=== PATIENT | female | born 2000 | race Caucasian/White ===

== ENCOUNTER 2022-12-05 19:55 | Inpatient (IN) | payer BC ==
[~2022-12-05] VITALS: Ht 157.5 cm; Wt 57.4 kg
[2022-12-05] MEDS ORDERED: normal saline 1000ML IV soln IV ONE (23:25)
[2022-12-05] MEDS ORDERED: diazepam inj 5 MG/ML inj. IV ONE (23:25)
[2022-12-05 23:44] LABS: BASOPHILS # (AUTO) 0.1 X10'3 (0-0.2); BASOPHILS % (AUTO) 1.2 % (0-1); EOSINOPHILS # (AUTO) 0.1 X10'3 (0-0.9); EOSINOPHILS % (AUTO) 1.3 % (0-6); HEMATOCRIT 41.2 % (35.0-45.0); HEMOGLOBIN 14.1 g/dl (12.0-16.0); LYMPHOCYTES # (AUTO) 1.4 X10'3 (1.1-4.8); LYMPHOCYTES % (AUTO) 20.5 % (21-51); MEAN CORPUSCULAR HEMOGLOBIN 32.9 PG (27.0-31.0); MEAN CORPUSCULAR HGB CONC 34.2 g/dL (33.0-36.5); MEAN CORPUSCULAR VOLUME 96.1 FL (78-98); MEAN PLATELET VOLUME 8.1 FL (7.4-10.4); MONOCYTES # (AUTO) 0.5 X10'3 (0-0.9); MONOCYTES % (AUTO) 7.8 % (2-12); NEUTROPHILS # (AUTO) 4.8 X10'3 (1.8-7.7); NEUTROPHILS % (AUTO) 69.2 % (42-75); PLATELET COUNT 338 X10'3 (140-440); RED BLOOD COUNT 4.29 X10'6 (4.20-5.60); WHITE BLOOD COUNT 6.9 X10'3 (4.5-11.0)
[2022-12-05 23:52] LABS: ALANINE AMINOTRANSFERASE 47 U/L (12-78); ALBUMIN 3.6 G/DL (3.4-5.0); ALKALINE PHOSPHATASE 81 IU/L (46-116); ANION GAP 7 (8-16); ASPARTATE AMINO TRANSFERASE 34 U/L (10-37); BILIRUBIN,TOTAL 0.5 MG/DL (0.1-1.0); BLOOD UREA NITROGEN 13 MG/DL (7-18); CALCIUM 8.8 MG/DL (8.5-10.1); CHLORIDE 102 MMOL/L (99-107); CREATININE 0.65 MG/DL (0.40-0.90); GLUCOSE 83 MG/DL (70-104); POTASSIUM 3.5 MMOL/L (3.5-5.1); SODIUM 137 MMOL/L (135-145); TOTAL CARBON DIOXIDE 28.1 MMOL/L (24-32); TOTAL PROTEIN 7.3 G/DL (6.4-8.2); eGFR > 90 ML/MIN
[2022-12-06 00:01] LABS: ETHANOL < 0.010 GM/DL (0.0-0.010)
[2022-12-06] MEDS ORDERED: acetaminophen 325mg tablet PO PRN (00:20)
[2022-12-06] MEDS ORDERED: bisacodyl 10mg suppository rectal RC PRN (00:20)
[2022-12-06] MEDS ORDERED: metoclopramide 5 mg/ml inj IV PRN (00:20)
[2022-12-06] MEDS ORDERED: magnesium 4gm in 100ml NS 100 ML IV PRN (00:20)
[2022-12-06] MEDS ORDERED: potassium Cl 40MEQ/1/2NS 520ml 520 ML IV PRN (00:20)
[2022-12-06] MEDS: dextrose 5%-1/2 normal saline 1,000 ML IV SCH ×3 (00:20→20:29)
[2022-12-06] MEDS ORDERED: magnesium Cl slow-release 64mg tablet PO PRN (00:20)
[2022-12-06] MEDS ORDERED: potassium Cl 20 mEq SR tablet PO PRN (00:20)
[2022-12-06] MEDS ORDERED: magnesium hydroxide 30ml (MOM) UD suspension PO PRN (00:20)
[2022-12-06] MEDS ORDERED: haloperidol lactate 5mg/ml inj IM PRN (00:20)
[2022-12-06] MEDS ORDERED: haloperidol 5mg tablet PO PRN (00:20)
[2022-12-06] MEDS ORDERED: ondansetron/PF 4mg/2ml inj IV PRN (00:20)
[2022-12-06] MEDS ORDERED: mag hydrox/Alum hydrox/simeth 30ml oral suspension PO PRN (00:20)
[2022-12-06] MEDS ORDERED: morphine 2 MG/ML inj. syringe IV PRN (00:20)
[2022-12-06] MEDS ORDERED: diphenhydrAMINE 50 mg/ml inj IV PRN (00:20)
[2022-12-06] MEDS ORDERED: dextrose 50%-water 50ml dispensing syringe IV PRN (00:20)
[2022-12-06] MEDS ORDERED: diphenhydrAMINE 25mg capsule PO PRN (00:20)
[2022-12-06] MEDS ORDERED: pantoprazole 40 MG vial IV ONE (00:35)
[2022-12-06] MEDS ORDERED: pantoprazole 40MG/NS 100ML BAG 100 ML IV ONE (00:55)
[2022-12-06 01:20] LABS: HEMOGLOBIN A1C 4.6 % (4.5-6.2)
[2022-12-06 01:23] LABS: APTT 25 SECONDS (22-32); D-DIMER 0.26 MG/L FEU (0-0.50)
[2022-12-06] MEDS: HYDROcodone/acetaminophen 5mg/325mg tablet PO PRN ×2 (01:26→20:01)
[2022-12-06] MEDS: ondansetron 4mg rapidly disintigrating tab PO PRN ×2 (01:28→07:43)
[2022-12-06 01:32] LABS: CREATINE KINASE 44 U/L (26-192); LIPASE 87 U/L (73-393); MAGNESIUM 1.9 MG/DL (1.5-2.4); PHOSPHORUS 3.5 MG/DL (2.3-4.5)
--- NOTE | 2022-12-06 03:50 | NUR ---
Pt with IVF infusing. Pt sleeping. Respirations observed. Will continue to monitor.
--- NOTE | 2022-12-06 05:00 | NUR ---
Pt sleeping. IV fluids infusing. Pt in no apparent distress. Pt respirations observed. Will continue to monitor.
[2022-12-06] MEDS: thiamine 100mg/ml 2ml inj. IV SCH ×3 (07:33→20:00)
[2022-12-06] MEDS: pantoprazole 40mg Tablet.DR PO SCH (07:33)
[2022-12-06] MEDS: multivitamins, therapeutics tablet PO SCH (07:33)
[2022-12-06] MEDS: potassium Cl 20 mEq SR tablet PO PRN ×2 (07:33→20:24)
[2022-12-06] MEDS: heparin, porcine 5000 units/ml vial SQ SCH ×2 (07:33→20:01)
[2022-12-06] MEDS: K and/or MAG REPLACEMENT MC SCH ×2 (07:34→20:14)
[2022-12-06] MEDS: nicotine 21mg patch - 24 hr TD SCH (07:34)
[2022-12-06] MEDS: LORazepam 2 mg/ml vial IV PRN ×2 (07:34→15:59)
[2022-12-06] MEDS: docusate sod 100mg capsule PO SCH ×2 (07:34→20:00)
[2022-12-06 07:41] LABS: CLARITY,URINE SLIGHTLY CLOUDY (Clear); COLOR,URINE YELLOW (Yellow); GLUCOSE, URINE NEGATIVE (Neg); KETONES,URINE NEGATIVE (Neg); LEUKOCYTE ESTERASE ,URINE NEGATIVE (Neg); NITRITES, URINE NEGATIVE (Neg); OCCULT BLOOD,URINE NEGATIVE (Neg); PH,URINE 6.5 (4.8-8.0); PROTEIN,URINE NEGATIVE (Neg); UROBILINOGEN,URINE 0.2 E.U/dL (0.2-1.0)
[2022-12-06 07:42] LABS: UA COLLECTION TYPE CLN CATCH MIDSTREAM
[2022-12-06 07:49] LABS: URINE AMPHETAMINE SCREEN NEGATIVE (Neg); URINE BARBITUATE SCREEN NEGATIVE (Neg); URINE BENZODIAZEPINES SCREEN POSITIVE (Neg); URINE CANNABINOID SCREEN POSITIVE (Neg); URINE COCAINE SCREEN POSITIVE (Neg); URINE METHADONE SCREEN NEGATIVE (Neg); URINE OPIATE SCREEN POSITIVE (Neg); URINE PHENCYCLIDINE SCREEN NEGATIVE (Neg)
[2022-12-06 07:58] LABS: CAL OXALATE CRYSTALS FEW /HPF (NEGATIVE)
[2022-12-06 07:59] LABS: AMORPHOUS URATES 1+; BACTERIA,URINE FEW /HPF (Neg); MUCUS STRANDS NONE SEEN /LPF (Neg); RBC,URINE NONE SEEN /HPF (0-2); SQUAMOUS EPITHELIAL CELL,UR FEW /LPF (FEW); WBC,URINE 0-4 /HPF (0-4)
[2022-12-06 08:08] LABS: URINE HCG NEGATIVE (NEG)
[2022-12-06] MEDS: folic acid 1mg/0.2ml inj IV SCH (08:45)
--- NOTE | 2022-12-06 09:13 | NUR ---
Received order for consult. Met with patient in regards to substance/alcohol use and to see if patient was interested in resources for treatment options. Patient is interested but patient is pretty sleepy and unable to carry a full conversation so I will follow up with patient when she gets to the floor.
--- NOTE | 2022-12-06 15:19 | NUR ---
Met with patient and her mom in regards to patient wanting to go to an inpatient rehab facility. Patient has private insurance so I talked to her about calling number on the back of insurance card to see where they are contracted with. Also discussed with patient about medication to help with cravings and the importance of getting a sponsor. Patient has my card to call me with any questions.
[2022-12-06] MEDS ORDERED: IBUP-1985 PO (16:39)
--- NOTE | 2022-12-06 20:20 | NUR ---
MOTHERS (KAYLYNN) PHONE NUMBER [phone]
[2022-12-06] MEDS ORDERED: temazepam 15mg capsule PO PRN (21:00)
[2022-12-07] MEDS: potassium Cl 20 mEq SR tablet PO PRN ×2 (00:41→08:17)
[2022-12-07] MEDS: ondansetron 4mg rapidly disintigrating tab PO PRN ×2 (00:44→21:36)
--- NOTE | 2022-12-07 00:58 | NUR ---
PT PLACED ON A HOSPITAL BED.
--- NOTE | 2022-12-07 01:01 | NUR ---
Camron rivera okay to speak to if calls [phone]
[2022-12-07 02:19] LABS: BASOPHILS # (AUTO) 0.1 X10'3 (0-0.2); EOSINOPHILS # (AUTO) 0.2 X10'3 (0-0.9); EOSINOPHILS % (AUTO) 3.4 % (0-6); HEMOGLOBIN 13.2 g/dl (12.0-16.0); LYMPHOCYTES # (AUTO) 1.5 X10'3 (1.1-4.8); LYMPHOCYTES % (AUTO) 30.9 % (21-51); MEAN CORPUSCULAR HEMOGLOBIN 33.4 PG (27.0-31.0); MEAN CORPUSCULAR HGB CONC 34.7 g/dL (33.0-36.5); MEAN CORPUSCULAR VOLUME 96.3 FL (78-98); MEAN PLATELET VOLUME 8.3 FL (7.4-10.4); MONOCYTES # (AUTO) 0.3 X10'3 (0-0.9); MONOCYTES % (AUTO) 6.6 % (2-12); NEUTROPHILS # (AUTO) 2.9 X10'3 (1.8-7.7); NEUTROPHILS % (AUTO) 57.1 % (42-75); PLATELET COUNT 249 X10'3 (140-440); RED BLOOD COUNT 3.94 X10'6 (4.20-5.60)
[2022-12-07 02:40] LABS: ALANINE AMINOTRANSFERASE 63 U/L (12-78); ALBUMIN/GLOBULIN RATIO 0.9 (1.1-1.5); ALKALINE PHOSPHATASE 65 IU/L (46-116); ANION GAP 4 (8-16); ASPARTATE AMINO TRANSFERASE 47 U/L (10-37); BILIRUBIN,TOTAL 0.4 MG/DL (0.1-1.0); BLOOD UREA NITROGEN 5 MG/DL (7-18); BUN/CREATININE RATIO 8.8 (10.0-20.0); CHLORIDE 105 MMOL/L (99-107); CHOL/HDL RATIO 2.8 (0.00-4.99); CHOLESTEROL 162 MG/DL (0-200); CREATININE 0.57 MG/DL (0.40-0.90); GLUCOSE 105 MG/DL (70-104); HDL CHOLESTEROL 58 MG/DL (35-60); POTASSIUM 3.4 MMOL/L (3.5-5.1); SODIUM 137 MMOL/L (135-145); TOTAL CARBON DIOXIDE 28.4 MMOL/L (24-32); TOTAL PROTEIN 6.2 G/DL (6.4-8.2); TRIGLYCERIDES 73 MG/DL (20-135); eGFR > 90 ML/MIN
[2022-12-07 02:54] LABS: LDL CHOLESTEROL 89 MG/DL (50-100)
[2022-12-07 03:24] LABS: PLATELET ESTIMATE NORMAL; TOTAL CELLS COUNTED 100
[2022-12-07] MEDS: dextrose 5%-1/2 normal saline 1,000 ML IV SCH ×3 (07:55→23:00)
[2022-12-07] MEDS: K and/or MAG REPLACEMENT MC SCH ×2 (08:00→20:00)
[2022-12-07] MEDS: thiamine 100mg/ml 2ml inj. IV SCH ×3 (08:14→21:27)
[2022-12-07] MEDS: docusate sod 100mg capsule PO SCH ×2 (08:16→21:25)
[2022-12-07] MEDS: heparin, porcine 5000 units/ml vial SQ SCH ×2 (08:16→21:24)
[2022-12-07] MEDS: pantoprazole 40mg Tablet.DR PO SCH (08:17)
[2022-12-07] MEDS: multivitamins, therapeutics tablet PO SCH (08:18)
[2022-12-07] MEDS: nicotine 21mg patch - 24 hr TD SCH (08:25)
[2022-12-07] MEDS: HYDROcodone/acetaminophen 5mg/325mg tablet PO PRN ×2 (08:32→21:35)
[2022-12-07] MEDS: folic acid 1mg/0.2ml inj IV SCH (08:53)
--- NOTE | 2022-12-07 13:00 | NUR ---
Received report from Break relief Nurse Artie. Patient arrived on floor, orientated to room and call light.
[2022-12-07 13:19] VITALS: BP 141/91
[2022-12-07] MEDS: LORazepam 2 mg/ml vial IV PRN ×2 (14:47→21:27)
--- NOTE | 2022-12-07 15:07 | NUR ---
In to place new PIV. Patient agreeable to inserting new PIV as she was complaining of IV in left AC to be painful. Patient very tearful throughout and stated she did not like needles and stated "I don't want to be here anymore." When asked if she meant here, as in the hospital stay, patient tearfully stated, "here or anywhere at all. I'm just tired of everything. I go to rehab after this." When asked if patient has suicidal ideation patient nodded head and with tearful soft spoken voice stated "yes." When asked if patient has plans or has had plans tp harm self patient shakes head and states "no. I'm too scared to. I would never. I have a little sister and I don't want to hurt my family. I can't do it. I'm too scared to ever think more of it." Patient states she is here for "alcohol withdraws" and is having some "anxiety." Educated patient on etoh and etoh withdraws and let patient know that there are services patient can access such as health care social worker. Patient agreeable to ativan and thankful. account services manager Eleanor notified, crane helper Shannen notified and primary RN Lea notified. Will continue to monitor. Patient's father now at bedside.
[2022-12-07 18:00] VITALS: BP 106/64
--- NOTE | 2022-12-07 18:49 | NUR ---
Problems reprioritized. Patient report given, questions answered & plan of care reviewed with Jessica Velazquez.
[2022-12-07 22:00] VITALS: BP 114/77
[2022-12-08 02:00] VITALS: BP 109/66
[2022-12-08] MEDS: dextrose 5%-1/2 normal saline 1,000 ML IV SCH ×3 (02:20→19:17)
[2022-12-08 04:27] LABS: BASOPHILS # (AUTO) 0.1 X10'3 (0-0.2); BASOPHILS % (AUTO) 0.8 % (0-1); EOSINOPHILS # (AUTO) 0.2 X10'3 (0-0.9); EOSINOPHILS % (AUTO) 2.2 % (0-6); HEMATOCRIT 37.4 % (35.0-45.0); HEMOGLOBIN 12.7 g/dl (12.0-16.0); LYMPHOCYTES # (AUTO) 2.1 X10'3 (1.1-4.8); LYMPHOCYTES % (AUTO) 26.6 % (21-51); MEAN CORPUSCULAR HEMOGLOBIN 33.3 PG (27.0-31.0); MEAN PLATELET VOLUME 8.6 FL (7.4-10.4); MONOCYTES # (AUTO) 0.6 X10'3 (0-0.9); MONOCYTES % (AUTO) 8.1 % (2-12); NEUTROPHILS % (AUTO) 62.3 % (42-75); PLATELET COUNT 255 X10'3 (140-440); RED BLOOD COUNT 3.82 X10'6 (4.20-5.60); RED CELL DISTRIBUTION WIDTH 12.8 % (11.5-14.5)
[2022-12-08 04:37] LABS: ALANINE AMINOTRANSFERASE 75 U/L (12-78); ALBUMIN 2.8 G/DL (3.4-5.0); ALBUMIN/GLOBULIN RATIO 0.9 (1.1-1.5); ALKALINE PHOSPHATASE 67 IU/L (46-116); ANION GAP 3 (8-16); ASPARTATE AMINO TRANSFERASE 43 U/L (10-37); BILIRUBIN,TOTAL 0.2 MG/DL (0.1-1.0); BLOOD UREA NITROGEN 7 MG/DL (7-18); BUN/CREATININE RATIO 10.1 (10.0-20.0); CALCIUM 8.2 MG/DL (8.5-10.1); CHLORIDE 105 MMOL/L (99-107); CREATININE 0.69 MG/DL (0.40-0.90); GLUCOSE 90 MG/DL (70-104); POTASSIUM 3.9 MMOL/L (3.5-5.1); SODIUM 138 MMOL/L (135-145); TOTAL CARBON DIOXIDE 29.7 MMOL/L (24-32); eGFR > 90 ML/MIN
[2022-12-08 06:57] VITALS: BP 105/86
--- NOTE | 2022-12-08 06:57 | NUR ---
Patient in room [facility]. I have received report from Jessica Velazquez RN and had the opportunity to ask questions and assume patient care.
[2022-12-08] MEDS: K and/or MAG REPLACEMENT MC SCH ×2 (08:00→20:00)
[2022-12-08] MEDS: pantoprazole 40mg Tablet.DR PO SCH (08:10)
[2022-12-08] MEDS: thiamine 100mg/ml 2ml inj. IV SCH ×2 (08:10→14:09)
[2022-12-08] MEDS: multivitamins, therapeutics tablet PO SCH (08:10)
[2022-12-08] MEDS: docusate sod 100mg capsule PO SCH ×2 (08:10→21:27)
[2022-12-08] MEDS: heparin, porcine 5000 units/ml vial SQ SCH ×2 (08:11→21:28)
[2022-12-08] MEDS: nicotine 21mg patch - 24 hr TD SCH (08:12)
[2022-12-08] MEDS: folic acid 1mg/0.2ml inj IV SCH (08:12)
[2022-12-08] MEDS: LORazepam 2 mg/ml vial IV PRN ×2 (08:30→13:58)
[2022-12-08 12:04] VITALS: BP 115/74
[2022-12-08] MEDS ORDERED: LORA-269 PO ×2 (12:19)
[2022-12-08] MEDS: acetaminophen 325mg tablet PO PRN (13:57)
[2022-12-08] MEDS: LORazepam 1 MG tablet PO PRN ×3 (16:55→23:50)
--- NOTE | 2022-12-08 16:59 | NUR ---
Patient and father Jose Daniel at bedside strongly express that patient does not want to go to [facility]. Patient and father would really like her to go to our Behavioral health floor. Patient is crying and very upset in the room after speaking to [facility]. Patient is willing to get help but super anxious about about [facility].
--- NOTE | 2022-12-08 18:30 | NUR ---
Problems reprioritized. Patient report given, questions answered & plan of care reviewed with Vivian WILD.
[2022-12-08] MEDS ORDERED: thiamine 100mg tablet PO SCH (21:00)
[2022-12-08 22:00] VITALS: BP 121/85
[2022-12-08] MEDS ORDERED: nicotine 21mg patch - 24 hr TD ONE (23:40)
[2022-12-08] MEDS ORDERED: NICOTINE POLACRILEX 2 MG LOZENGE BC PRN (23:50)
--- NOTE | 2022-12-08 23:50 | NUR ---
Pt showered, Nicotine patch came off, New one was replaced.
[2022-12-09] MEDS: LORazepam 1 MG tablet PO PRN ×3 (01:03→14:27)
[2022-12-09 04:57] LABS: BASOPHILS % (AUTO) 0.6 % (0-1); EOSINOPHILS # (AUTO) 0.2 X10'3 (0-0.9); EOSINOPHILS % (AUTO) 2.8 % (0-6); HEMATOCRIT 36.3 % (35.0-45.0); HEMOGLOBIN 12.5 g/dl (12.0-16.0); LYMPHOCYTES # (AUTO) 1.7 X10'3 (1.1-4.8); LYMPHOCYTES % (AUTO) 21.6 % (21-51); MEAN CORPUSCULAR HEMOGLOBIN 33.4 PG (27.0-31.0); MEAN CORPUSCULAR HGB CONC 34.5 g/dL (33.0-36.5); MEAN CORPUSCULAR VOLUME 96.9 FL (78-98); MEAN PLATELET VOLUME 8.7 FL (7.4-10.4); MONOCYTES # (AUTO) 0.6 X10'3 (0-0.9); MONOCYTES % (AUTO) 7.3 % (2-12); NEUTROPHILS # (AUTO) 5.2 X10'3 (1.8-7.7); NEUTROPHILS % (AUTO) 67.7 % (42-75); PLATELET COUNT 240 X10'3 (140-440); RED BLOOD COUNT 3.74 X10'6 (4.20-5.60); WHITE BLOOD COUNT 7.7 X10'3 (4.5-11.0)
[2022-12-09 05:00] LABS: ALANINE AMINOTRANSFERASE 81 U/L (12-78); ALBUMIN 2.9 G/DL (3.4-5.0); ALBUMIN/GLOBULIN RATIO 0.9 (1.1-1.5); ALKALINE PHOSPHATASE 68 IU/L (46-116); ANION GAP 4 (8-16); ASPARTATE AMINO TRANSFERASE 53 U/L (10-37); BILIRUBIN,TOTAL 0.2 MG/DL (0.1-1.0); BLOOD UREA NITROGEN 10 MG/DL (7-18); BUN/CREATININE RATIO 15.2 (10.0-20.0); CALCIUM 8.4 MG/DL (8.5-10.1); CHLORIDE 103 MMOL/L (99-107); CREATININE 0.66 MG/DL (0.40-0.90); GLUCOSE 119 MG/DL (70-104); POTASSIUM 3.4 MMOL/L (3.5-5.1); SODIUM 134 MMOL/L (135-145); TOTAL CARBON DIOXIDE 27.4 MMOL/L (24-32); TOTAL PROTEIN 6.1 G/DL (6.4-8.2); eGFR > 90 ML/MIN
[2022-12-09 06:00] VITALS: BP 118/82
--- NOTE | 2022-12-09 06:20 | NUR ---
Problems reprioritized. Patient report given, questions answered & plan of care reviewed with Sally WILD. Addendum: 12/09/22 at 0622 by Vivian Miller RN Amended: Links added.
[2022-12-09] MEDS ORDERED: thiamine 100mg tablet PO SCH (08:00)
[2022-12-09] MEDS: K and/or MAG REPLACEMENT MC SCH (08:00)
[2022-12-09] MEDS: dextrose 5%-1/2 normal saline 1,000 ML IV SCH (08:20)
[2022-12-09] MEDS: nicotine 21mg patch - 24 hr TD SCH (09:58)
[2022-12-09] MEDS: docusate sod 100mg capsule PO SCH (09:59)
[2022-12-09] MEDS: pantoprazole 40mg Tablet.DR PO SCH (09:59)
[2022-12-09] MEDS: acetaminophen 325mg tablet PO PRN (10:00)
[2022-12-09] MEDS: heparin, porcine 5000 units/ml vial SQ SCH (10:00)
[2022-12-09] MEDS: multivitamins, therapeutics tablet PO SCH ×2 (10:06→10:07)
--- NOTE | 2022-12-09 10:56 | NUR ---
Oaged Dr Dill: Rice [id number]. K+ 3.4. No replacement ordered. Sally [phone]
[2022-12-09 11:00] VITALS: BP 120/84
[2022-12-09] MEDS ORDERED: potassium Cl 20 mEq SR tablet PO STA (11:50)
[2022-12-09] MEDS ORDERED: potassium Cl 20 mEq SR tablet PO PRN ×3 (14:00→14:10)
--- NOTE | 2022-12-09 14:52 | NUR ---
gave h/o report to Chris BERNSTEIN
[2022-12-09] MEDS ORDERED: NO HOME MEDS (15:45)
[2022-12-09 16:42] LABS: CHOL/HDL RATIO 2.7 (0.00-4.99); CHOLESTEROL 160 MG/DL (0-200); HDL CHOLESTEROL 60 MG/DL (35-60); LDL CHOLESTEROL 83 MG/DL (50-100); TRIGLYCERIDES 85 MG/DL (20-135)
[2022-12-10] MEDS ORDERED: LORazepam 1 MG tablet PO PRN (00:20)
[2022-12-10] MEDS ORDERED: LORazepam 2 mg/ml vial IV PRN (00:20)
== END 2022-12-09 14:47 | DRG 640 ==
LOC: ER 19:56 → ED HOLD 12-06 00:31 → EDBEDREQ 12-06 01:58 → SUR 3N 12-07 12:50
PROVIDERS: ADMIT Family Medicine; ATTEND Internal Medicine
DX: E86.0 Dehydration (principal); K29.71 Gastritis, unspecified, with bleeding; F10.230 Alcohol dependence with withdrawal, uncomplicated; I10 Essential (primary) hypertension; R45.88 Nonsuicidal self-harm; Z71.41 Alcohol abuse counseling and surveillance of alcoholic
CPT/HCPCS: 36415; 71045; 80053; 80061; 80305; 80320; 81001; 81025; 82550; 83036; 83690; 83735; 83880; 84100; 84132; 84443; 84484; 85007; 85025; 85379; 85610; 85730; 87081; 93005; 96374; 99285; C9113; G0378; J1644; J2060; J3360; J3411; J3490; J7030

== ENCOUNTER 2022-12-09 14:00 | Inpatient (IN) | payer BC ==
[~2022-12-09] VITALS: Ht 157.5 cm; Wt 57.6 kg
[~2022-12-09 14:00] MED LIST: IBUP-1985 PO; LORA-269 PO
[2022-12-09 14:34] VITALS: BP 121/83
[2022-12-09] MEDS ORDERED: NO HOME MEDS (15:45)
[2022-12-09] MEDS ORDERED: docusate sod 100mg capsule PO PRN (15:50)
[2022-12-09] MEDS ORDERED: ondansetron 4mg rapidly disintigrating tab PO PRN (15:50)
[2022-12-09] MEDS ORDERED: magnesium hydroxide 30ml (MOM) UD suspension PO PRN (15:55)
[2022-12-09] MEDS ORDERED: acetaminophen 325mg tablet PO PRN (15:55)
[2022-12-09] MEDS ORDERED: mag hydrox/Alum hydrox/simeth 30ml oral suspension PO PRN (15:55)
[2022-12-09] MEDS ORDERED: loperamide 2mg capsule PO PRN (15:55)
--- NOTE | 2022-12-09 16:48 | NUR ---
ADMIT NOTE: Patient is a transfer from [facility] surgical unit. Pt originally presented to the ED on 12/06 for N/V r/t to ETOH withdrawal. Pt reported drinking heavily for the last 2-3 years and had a couple of shot earlier in the day to help with her shaking. Pt was diagnosed with ETOH withdrawal syndrome and admitted to hospital for further evaluation and treatment. Pt was positive for benzos, opiates and THC. During her stay staff became concerned about pts MH. Pt was evaluated and placed on 5150 for DTS. Pt presented depressed, hopeless and endorsed SI. Patient was unable to safety plan.
[2022-12-09] MEDS: acetaminophen 325mg tablet PO PRN ×3 (17:03→20:43)
[2022-12-09] MEDS: LORazepam 1 MG tablet PO PRN (17:03)
[2022-12-09 18:49] LABS: BASOPHILS # (AUTO) 0.1 X10'3 (0-0.2); BASOPHILS % (AUTO) 0.8 % (0-1); EOSINOPHILS # (AUTO) 0.1 X10'3 (0-0.9); EOSINOPHILS % (AUTO) 1.5 % (0-6); HEMATOCRIT 40.7 % (35.0-45.0); HEMOGLOBIN 14.1 g/dl (12.0-16.0); LYMPHOCYTES # (AUTO) 1.6 X10'3 (1.1-4.8); LYMPHOCYTES % (AUTO) 21.8 % (21-51); MEAN CORPUSCULAR HEMOGLOBIN 33.5 PG (27.0-31.0); MEAN CORPUSCULAR HGB CONC 34.6 g/dL (33.0-36.5); MEAN CORPUSCULAR VOLUME 96.7 FL (78-98); MEAN PLATELET VOLUME 8.6 FL (7.4-10.4); MONOCYTES # (AUTO) 0.4 X10'3 (0-0.9); MONOCYTES % (AUTO) 5.5 % (2-12); NEUTROPHILS # (AUTO) 5.3 X10'3 (1.8-7.7); NEUTROPHILS % (AUTO) 70.4 % (42-75); PLATELET COUNT 257 X10'3 (140-440); RED BLOOD COUNT 4.21 X10'6 (4.20-5.60); RED CELL DISTRIBUTION WIDTH 13.1 % (11.5-14.5); WHITE BLOOD COUNT 7.5 X10'3 (4.5-11.0)
[2022-12-09 18:50] LABS: ALANINE AMINOTRANSFERASE 124 U/L (12-78); ALBUMIN 3.5 G/DL (3.4-5.0); ALBUMIN/GLOBULIN RATIO 0.9 (1.1-1.5); ALKALINE PHOSPHATASE 85 IU/L (46-116); ANION GAP 8 (8-16); ASPARTATE AMINO TRANSFERASE 83 U/L (10-37); BILIRUBIN,TOTAL 0.3 MG/DL (0.1-1.0); BLOOD UREA NITROGEN 7 MG/DL (7-18); BUN/CREATININE RATIO 9.1 (10.0-20.0); CALCIUM 8.5 MG/DL (8.5-10.1); CHLORIDE 102 MMOL/L (99-107); CREATININE 0.77 MG/DL (0.40-0.90); GLUCOSE 133 MG/DL (70-104); POTASSIUM 3.6 MMOL/L (3.5-5.1); SODIUM 137 MMOL/L (135-145); TOTAL CARBON DIOXIDE 26.7 MMOL/L (24-32); TOTAL PROTEIN 7.4 G/DL (6.4-8.2); eGFR > 90 ML/MIN
[2022-12-09 19:11] VITALS: BP 123/78
[2022-12-09] MEDS ORDERED: LORazepam 1 MG tablet PO ONE (20:40)
[2022-12-09] MEDS: traZODone 50mg tablet PO PRN (20:44)
[2022-12-09] MEDS: NICOTINE POLACRILEX 2 MG LOZENGE BC PRN (20:46)
--- NOTE | 2022-12-10 05:35 | NUR ---
Nursing Progress Note: Problem : Patient is a transfer from [facility] surgical unit. Pt originally presented to the ED on 12/06 for N/V r/t to ETOH withdrawal. Pt reported drinking heavily for the last 2-3 years and had a couple of shot earlier in the day to help with her shaking. Pt was diagnosed with ETOH withdrawal syndrome and admitted to hospital for further evaluation and treatment. Pt was positive for benzos, opiates and THC. During her stay staff became concerned about pts MH. Pt was evaluated and placed on 5150 for DTS. Pt presented depressed, hopeless and endorsed SI. Patient was unable to safety plan. Interventions : 1:1 assessment, establishment of rapport, therapeutic communication, active listening, medication administration/education/monitoring, ensured contract for safety, nausea management, pain management, encouragement for adequate PO intake of food and fluids, encouragement to take his medications, encouraged pt to come out of his room, reassured pt he is safe, and maintained Q15 min safety checks. Response : Pt was in her room at change of shift requesting to change rooms. Pt was moved to [address] where she sat quietly working on a puzzle. pt denies s/i, reports feeling some nausea. Pt denies a/vh but later states she can't be out of her room because she doesn't like the "Vibe of the people here, they're all demons." pt requested to have a snack in her room and was provided a snack. Pts CIWA score @2040 was a 21. Pt HR was elevated at 111 was c/o of a DELUCA, anxiety, and agitated. Pt had beads of sweat on her forehead, and moderate tremors. Pt asked "do you have anything stronger than ativan?" Pt was given prn ativan, tylenol, and trazodone. 30 minutes later pt reports all symptoms had improved and only minimal sweating of palms continued. Pt was able to eat her snack and slept well. Pt reported no symptoms at 0300. Pts HR continues to be slightly elevated at 98. Plan : Pt. requires medication adjustments in a safe and supportive environment.
[2022-12-10] MEDS: nicotine 21mg patch - 24 hr TD SCH (07:48)
[2022-12-10] MEDS: thiamine 100mg tablet PO SCH (07:49)
[2022-12-10] MEDS: folic acid 1mg tablet PO SCH (07:49)
[2022-12-10] MEDS: pantoprazole 40mg Tablet.DR PO SCH (07:49)
[2022-12-10] MEDS: multivitamins, therapeutics tablet PO SCH (07:49)
[2022-12-10] MEDS: hydrOXYzine 25 MG tablet PO PRN ×2 (07:50→14:34)
[2022-12-10 08:00] VITALS: BP 119/81
[2022-12-10] MEDS: LORazepam 1 MG tablet PO PRN ×3 (09:21→21:25)
[2022-12-10] MEDS: NICOTINE POLACRILEX 2 MG LOZENGE BC PRN (12:36)
--- NOTE | 2022-12-10 15:22 | NUR ---
Spoke with Leela's dad, Jose Daniel (ph# [phone]), and provided him some resources for rehab for Leela. Also suggested he call his insurance to find out what programs are covered. Mom: June-ph# [phone] KARLO Lynch
--- NOTE | 2022-12-10 17:28 | NUR ---
Nursing Progress Note: Problem: Patient [facility] Pt originally presented to the ED on 12/06 for N/V r/t to ETOH withdrawal. Pt reported drinking heavily for the last 2-3 years and had a couple of shot earlier in the day to help with her shaking. Pt was diagnosed with ETOH withdrawal syndrome and admitted to hospital for further evaluation and treatment. Pt was positive for benzos, opiates and THC. During her stay staff became concerned about pts MH. Pt was evaluated and placed on 5150 for DTS. Pt presented depressed, hopeless and endorsed SI. Patient was unable to safety plan. Interventions: Provide medication administration & medication management; Maintained a safe & supportive environment; Clear & simple instructions; Direction & encouragement regarding performance of ADLs; monitored behaviors & maintained clear boundaries; Patient physical assessment & 1:1 patient interview; Therapeutic conversation & active listening; Patient education & monitoring Response: Received patient who was in her room and sleeping then woke up at approximately 0710. Patient appears pleasant and calm at this time. Patient is on CIWA Documentation which is next due at 0900. Patient took her morning medications without hesitation. Patient ambulated to the Community Room for breakfast and sat quietly while eating her breakfast with peers. Patient then returned to her room where she is putting together a puzzle on her bedside table, as well as coloring in a book with crayons and appears to enjoy this activity. Patient c/o anxiety at 0745 when she was taking her 0800 medications, and was administered Atarax at 0750 with good relief. CIWA information was collected at 0800 and patient rated her anxiety level at a 7 and received Ativan with good relief. Patients father visited at 1000 to 1100, then patient participated in snack time as well as attended Group Meeting and spoke openly during the meeting regarding communication styles. Patient rested in bed and colored then received Atarax at 1434. Patients CIWA was completed at 1515 and patient reported a low level of anxiety. Patient was administered Ativan at 1520 while she was in the Community Room eating her snacks. Patient was not symptomatic of any of the CIWA assessment areas at that time. Patient is pleasant and cooperative throughout the day. Appreciates having a private room at this time where she can relax and reflect on her life. Patient denies SI/AV/AH at this time. Patient showered at approximately 1540. Plan: Pt. requires medication adjustments in a safe and supportive environment.
[2022-12-10 19:56] VITALS: BP 136/83
[2022-12-10] MEDS: traZODone 50mg tablet PO PRN ×2 (20:56→21:49)
--- NOTE | 2022-12-11 00:27 | NUR ---
Nursing Progress Note: Problem: Patient is a transfer from [facility] surgical unit. Pt originally presented to the ED on 12/06 for N/V r/t to ETOH withdrawal. Pt reported drinking heavily for the last 2-3 years and had a couple of shot earlier in the day to help with her shaking. Pt was diagnosed with ETOH withdrawal syndrome and admitted to hospital for further evaluation and treatment. Pt was positive for benzos, opiates and THC. During her stay staff became concerned about pts MH. Pt was evaluated and placed on 5150 for DTS. Pt presented depressed, hopeless and endorsed SI. Patient was unable to safety plan. Interventions: Provide medication administration & medication management; Maintained a safe & supportive environment; Clear & simple instructions; Direction & encouragement regarding performance of ADLs; monitored behaviors & maintained clear boundaries; Patient physical assessment & 1:1 patient interview; Therapeutic conversation & active listening; Patient education & monitoring Response: Pt was in her room listening to head phones and coloring at change of shift. Pt denies s/i, states she is feeling anxious and bothered by the noise on the unit today. Pt has earplugs and agrees the headphones have been helpful. Pt c/o constipation but didnt want MOM. Pt opted to try prune juice, then later requested MOM. Pt remains on CIWA protocol and reports mild anxiety but no other symptoms. Pt was given prn ativan. Pt spent evening in her room quietly coloring and making calls to her family. Pt took Trazodone prn at HS and requested a stronger dose stating she didnt sleep well the previous night. Pt was given a repeat dose of Trazodone before falling asleep. Plan: Pt. requires medication adjustments in a safe and supportive environment.
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
[2022-12-11 08:00] VITALS: BP 99/66
[2022-12-11] MEDS ORDERED: ESCITALOPRAM OXALATE 5 MG TABLET PO SCH (08:00)
[2022-12-11] MEDS: multivitamins, therapeutics tablet PO SCH (08:24)
[2022-12-11] MEDS: folic acid 1mg tablet PO SCH (08:24)
[2022-12-11] MEDS: LORazepam 0.5 MG tablet PO SCH ×4 (08:24→20:23)
[2022-12-11] MEDS: thiamine 100mg tablet PO SCH (08:24)
[2022-12-11] MEDS: pantoprazole 40mg Tablet.DR PO SCH (08:24)
[2022-12-11] MEDS: nicotine 21mg patch - 24 hr TD SCH (08:26)
[2022-12-11 09:41] LABS: HBSAG SCREEN Negative (Negative); HEP B CORE AB, TOT Negative (Negative)
[2022-12-11 13:00] VITALS: BP 104/63
[2022-12-11] MEDS: NICOTINE POLACRILEX 2 MG LOZENGE BC PRN ×2 (15:35→20:35)
--- NOTE | 2022-12-11 17:47 | NUR ---
Nursing Progress Note: Leela Problem: Patient is a transfer from [facility] surgical unit. Pt originally presented to the ED on 12/06 for N/V r/t to ETOH withdrawal. Pt reported drinking heavily for the last 2-3 years and had a couple of shots earlier in the day to help with her shaking. Pt was diagnosed with ETOH withdrawal syndrome and admitted to hospital for further evaluation and treatment. Pt was positive for benzos, opiates and THC. During her stay, staff became concerned about pts MH. Pt was evaluated and placed on 5150 for DTS. Pt presented depressed, hopeless and endorsed SI. Patient was unable to safety plan. Interventions: Maintained a safe & supportive environment, 1:1 assessment, medication administration/education/monitoring, clear & simple instructions, direction & encouragement regarding performance of ADLs, therapeutic conversation & active listening, and Q15 minute safety checks. Response: Patient received sleeping in her room at change of shift. She awoke and endorsed to this newspaper writer that she slept better last night than before. Patient presents as pleasant, calm, and cooperative with care. She joined with peers in the group room for breakfast. Pt retreated back to her room shortly after and was receptive to scheduled medication. Patient endorsed anxiety r/t disturbances caused by other patients on the unit. She denies SI/HI, AH or VH. Patient endorsed that the other nurses overreacted and she would never actually do anything to hurt herself. Patient stating that she worries about the well-being of her family and wouldnt want to do anything to upset them. She was observed sitting in her room coloring pictures throughout the day. Pt noted listening to music through headphones to block out the noise on the unit. She remains on CIWA protocol with a score of zero noted this shift. Pt approached this newspaper writer later in the shift endorsing that she wants to go home and is feeling more depressed being in here. Pt noted to be disturbed by the behaviors of other peers on the unit. She joined for all meals and snack times in the group room with peers today. Plan: Pt. requires medication adjustments in a safe and supportive environment.
[2022-12-11 19:50] VITALS: BP 122/78
[2022-12-11] MEDS: traZODone 50mg tablet PO PRN ×2 (20:23→22:03)
--- NOTE | 2022-12-12 03:15 | NUR ---
Nursing Progress Note: Problem: Patient is a transfer from [facility] surgical unit. Pt originally presented to the ED on 12/06 for N/V r/t to ETOH withdrawal. Pt reported drinking heavily for the last 2-3 years and had a couple of shots earlier in the day to help with her shaking. Pt was diagnosed with ETOH withdrawal syndrome and admitted to hospital for further evaluation and treatment. Pt was positive for benzos, opiates and THC. During her stay, staff became concerned about pts MH. Pt was evaluated and placed on 5150 for DTS. Pt presented depressed, hopeless and endorsed SI. Patient was unable to safety plan. Interventions: Maintained a safe & supportive environment, 1:1 assessment, medication administration/education/monitoring, clear & simple instructions, and Q15 minute safety checks. Response: Patient in her room lying quietly at the change of shift, she spent the entire shift in her room, listening to music, reading books, talking to family on the phone. Affect continues to appear depressed, but she denies any current thoughts of suicide. She states that the Ativan scheduled 4 times a day is helping with her anxiety. She required Trazadone 50mg, with a repeat of 100mg (Dr. Guzman increased dose, pt notified of this change) to help her sleep. Plan: Pt. requires medication adjustments in a safe and supportive environment.
[2022-12-12 08:00] VITALS: BP 108/62
[2022-12-12] MEDS: pantoprazole 40mg Tablet.DR PO SCH (08:21)
[2022-12-12] MEDS: thiamine 100mg tablet PO SCH (08:22)
[2022-12-12] MEDS: LORazepam 0.5 MG tablet PO SCH ×3 (08:22→20:44)
[2022-12-12] MEDS: ESCITALOPRAM OXALATE 5 MG TABLET PO SCH (08:22)
[2022-12-12] MEDS: multivitamins, therapeutics tablet PO SCH (08:22)
[2022-12-12] MEDS: folic acid 1mg tablet PO SCH (08:22)
[2022-12-12] MEDS: nicotine 21mg patch - 24 hr TD SCH (08:28)
[2022-12-12] MEDS: NICOTINE POLACRILEX 2 MG LOZENGE BC PRN ×2 (09:38→16:07)
--- NOTE | 2022-12-12 14:22 | NUR ---
DISCHARGE PLAN Leela is going to discharge tomorrow to her parents home in [place] while she looks for a rehab. She has follow up scheduled through [facility]. Provided her with information on [facility], AA meetings, Drug and alcohol tx through [facility], and crisis services. Spoke with Leela's dad, Jose Daniel (ph# [phone]), who reported he can pick her up at 4 PM tomorrow. KARLO Lynch
--- NOTE | 2022-12-12 15:33 | NUR ---
Nursing Progress Note: Leela Problem: Patient is a transfer from [facility] surgical unit. Pt originally presented to the ED on 12/06 for N/V r/t to ETOH withdrawal. Pt reported drinking heavily for the last 2-3 years and had a couple of shots earlier in the day to help with her shaking. Pt was diagnosed with ETOH withdrawal syndrome and admitted to hospital for further evaluation and treatment. Pt was positive for benzos, opiates and THC. During her stay, staff became concerned about pts MH. Pt was evaluated and placed on 5150 for DTS. Pt presented depressed, hopeless and endorsed SI. Patient was unable to safety plan. Interventions: Maintained a safe & supportive environment, 1:1 assessment, medication administration/education/monitoring, clear & simple instructions, direction & encouragement regarding performance of ADLs, therapeutic conversation & active listening, and Q15 minute safety checks. Response: Received Pt in bed sleeping w/o distress at the beginning of this shift. Pt woke and was cooperative with vitals and sat on her bed doing artwork. Pt pleasant and engaged in assessments with this nurse. Pt ate meals and snack well. She visited with grandmother and visit appeared to be friendly and supportive. Pt vocal about wanting to go to Rehab and recovery issues discussed with her. She attended group and was seen in community room with others. Pt excited about going home tomorrow and wants to engage with therapist and states she will stay on meds that Dr Guzamn is prescribing. Pt denies SI/HI/AH/VH. Pt did not show outward anxiety during this shift and did not need any prn meds. Pt listened to headphones and colored with pastels and able to laugh in conversation. Plan: Pt. requires medication adjustments in a safe and supportive environment.
[2022-12-12 19:00] VITALS: BP 112/74
[2022-12-12] MEDS: traZODone 50mg tablet PO PRN (20:52)
--- NOTE | 2022-12-13 03:33 | NUR ---
Nursing Progress Note: Leela Problem: Patient is a transfer from [facility] surgical unit. Pt originally presented to the ED on 12/06 for N/V r/t to ETOH withdrawal. Pt reported drinking heavily for the last 2-3 years and had a couple of shots earlier in the day to help with her shaking. Pt was diagnosed with ETOH withdrawal syndrome and admitted to hospital for further evaluation and treatment. Pt was positive for benzos, opiates and THC. During her stay, staff became concerned about pts MH. Pt was evaluated and placed on 5150 for DTS. Pt presented depressed, hopeless and endorsed SI. Patient was unable to safety plan. Interventions: Maintained a safe & supportive environment, 1:1 assessment, medication administration/education/monitoring, clear & simple instructions, direction & encouragement regarding performance of ADLs, therapeutic conversation & active listening, and Q15 minute safety checks. Response: Patient was found sitting in community room at change of shift. Patient sat in corner of room watching tv and other patients. Patient gave short responses to nurse and requested prn trazodone along with night meds. Patient took night medications without issue and retuned to watching tv. Plan: Pt. requires medication adjustments in a safe and supportive environment.
[2022-12-13 07:16] VITALS: BP 110/68
[2022-12-13] MEDS: nicotine 21mg patch - 24 hr TD SCH (07:53)
[2022-12-13] MEDS: ESCITALOPRAM OXALATE 5 MG TABLET PO SCH (07:53)
[2022-12-13] MEDS: folic acid 1mg tablet PO SCH (07:53)
[2022-12-13] MEDS: LORazepam 0.5 MG tablet PO SCH ×2 (07:53→13:10)
[2022-12-13] MEDS: multivitamins, therapeutics tablet PO SCH (07:53)
[2022-12-13] MEDS: thiamine 100mg tablet PO SCH (07:53)
[2022-12-13] MEDS: pantoprazole 40mg Tablet.DR PO SCH (07:53)
[2022-12-13] MEDS: NICOTINE POLACRILEX 2 MG LOZENGE BC PRN ×3 (08:58→15:48)
--- NOTE | 2022-12-13 09:59 | NUR ---
Initial: Pt admit for depression with SI, EtOH, and illicit drug use. Pt receiving routine Thiamine, Folic acid, and MVI for EtOH use. Currently on a regular diet and eating well, documented with mostly 100% PO intake meeting estimated nutrient needs. LBM 4/5. No nutrition intervention warranted at this time. Will continue to follow. Recommendations: 1) Continue regular diet 2) Continue routine Thiamine, Folic acid, and MVI for EtOH hx 3) Bowel care PRN 4) Weekly scaled weights Addendum: 12/13/22 at [address] Amended: Links added.
[2022-12-13] MEDS ORDERED: thiamine tablet PO (12:35)
[2022-12-13] MEDS ORDERED: NICO-687 TD (12:35)
[2022-12-13] MEDS ORDERED: FOLI1TAB27 PO (12:35)
[2022-12-13] MEDS ORDERED: PANT40TA54 PO (12:35)
[2022-12-13] MEDS ORDERED: HYDR-3686 PO (12:35)
[2022-12-13] MEDS ORDERED: ESCI-8 PO (12:35)
[2022-12-13] MEDS ORDERED: TRAZ-251 PO (12:35)
[2022-12-13] MEDS ORDERED: THIA50TA10 PO (12:36)
[2022-12-13] MEDS ORDERED: NALT50TA PO (15:11)
[2022-12-13] MEDS ORDERED: naltrexone 50mg tablet PO SCH (15:30)
--- NOTE | 2022-12-13 16:40 | NUR ---
DISCHARGE NOTE: Patient has been medication compliant. She wanted to be put on Naltrexone on discharge, Dr. Guzman ordered to her pharmacy in [place]. Patient's father is here to pick her up. She is escorted down by Viridiana Henson RN. Patient denies SI/HI and is discharged in stable condition. Patient has plan to go into treatment center for her addictions.
== END 2022-12-13 16:45 | disposition home or self-care (01) | DRG 885 ==
LOC: ADULT MH 14:00
PROVIDERS: ADMIT Psychiatry & Neurology Psychiatry; ATTEND Psychiatry & Neurology Psychiatry
DX: F33.2 Major depressive disorder, recurrent severe without psychotic features (principal); R45.851 Suicidal ideations; F41.9 Anxiety disorder, unspecified; F10.20 Alcohol dependence, uncomplicated; F14.10 Cocaine abuse, uncomplicated; F17.210 Nicotine dependence, cigarettes, uncomplicated; Z56.0 Unemployment, unspecified; Z90.49 Acquired absence of other specified parts of digestive tract
CPT/HCPCS: 36415; 80053; 83735; 84443; 85025; 86704; 86705; 86706; 87081; 87340; Q0177